=== PATIENT | male | born 1955 | race Caucasian/White ===

== ENCOUNTER → 2016-07-10 | Outpatient (CLI) | payer OTHER ==
[~2016-07-10] MED LIST: ALPRAZOLAM PO; ASPIRIN PO; IBUPROFEN PO; IBUPROFEN800 MG PO; METHADONE PO; TRAMADOL HCL50 M1 PO; ZESTRIL30 MG PO; ZOLOFT PO
--- NOTE | ~2016-07-10 | CR58 ---
[facility] A Service of [facility] RADIOLOGY TEXT RESULTS PATIENT: YOVANI ARTEAGA LOCATION: [facility] : 57 UNIT #: [id number] AGE: [address]: NERISSA ZUNIGA SEX: M ORDER DR: [id number] [facility] [address] [place], [place] [address] [id number] O MR#: [id number] Acc #: [id number] NAME: YOVANI ARTEAGA : 1955 SEX: M STUDY DATE/TIME: 07/10/2016 9:00 UNIT: [facility] ROOM: STUDY DESCRIPTION: CR Cervical Spine 2 or 3 Views Attending Physician: Joselito Larios Referring Physician: Joselito Larios Ordering Physician: Joselito Larios Primary Care Physician: Diana Lees M.D. MEDICAL IMAGING REPORT This report is preliminary unless electronic signature is present EXAM Cervical spine 07/10 INDICATIONS Neck pain and right shoulder pain intermittently over the last 2 years. No trauma. TECHNIQUE 3 views of the cervical spine were obtained COMPARISON No comparison FINDINGS There is retrolisthesis of C3 on C4. This measures about 4 mm. There is disc space narrowing at C3-4 level as well. There is multilevel facet arthropathy. Prevertebral soft tissues are normal. There are no fractures. IMPRESSION Spondylolisthesis and degenerative disc disease at C3-4. Followup with MRI is recommended if patient is a candidate. Dictated by... Jack Staples Jr., M.D. THIS IS AN ELECTRONICALLY VERIFIED REPORT Jack Staples Jr., M.D. at 07/10/2016 4:48 PM RLK/to TD: 07/10/2016 13:16 JOB #: [id number] [facility] A Service of [facility] RADIOLOGY TEXT RESULTS PATIENT: YOVANI ARTEAGA LOCATION: [facility] : 57 UNIT #: [id number] AGE: [address]: NERISSA ZUNIGA SEX: M ORDER DR: MEDICAL IMAGING REPORT Page 1 of 1 COPY
--- NOTE | ~2016-07-10 | CR230 ---
[facility] A Service of [facility] RADIOLOGY TEXT RESULTS PATIENT: YOVANI ARTEAGA LOCATION: [facility] : 57 UNIT #: [id number] AGE: [address]: NERISSA ZUNIGA SEX: M ORDER DR: [id number] [facility] [address] [facility] [place], [place] [address] [id number] O MR#: [id number] Acc #: [id number] NAME: YOVANI ARTEAGA : 1955 SEX: M STUDY DATE/TIME: 07/10/2016 9:00 UNIT: [facility] ROOM: STUDY DESCRIPTION: CR Shoulder Min 2 View Rt Attending Physician: Joselito Larios Referring Physician: Joselito Larios Ordering Physician: Joselito Larios Primary Care Physician: Diana Lees M.D. MEDICAL IMAGING REPORT This report is preliminary unless electronic signature is present There is a mild to EXAM Right shoulder 07/10 INDICATIONS Neck pain and right shoulder pain with intermittent numbness and tingling for 2 years. No trauma. FINDINGS 2 views of the right shoulder were obtained. There is hypertrophic AC joint arthropathy and there is no AC joint separation. There is no glenohumeral dislocation. IMPRESSION No acute findings. There is AC joint arthropathy. Dictated by... Jack Staples Jr., M.D. THIS IS AN ELECTRONICALLY VERIFIED REPORT Jack Staples Jr., M.D. at 07/10/2016 4:48 PM VALENTINK/mookie TD: 07/10/2016 13:18 JOB #: [id number] MEDICAL IMAGING REPORT Page 1 of 1 COPY
== END | disposition home or self-care (01) ==
LOC: CRAD 08:51
DX: M54.2 Cervicalgia (principal); M25.511 Pain in right shoulder; M19.011 Primary osteoarthritis, right shoulder; M43.12 Spondylolisthesis, cervical region; M50.31 Other cervical disc degeneration, high cervical region
CPT/HCPCS: 72040; 73030

== ENCOUNTER → 2016-07-24 | Outpatient (CLI) | payer OTHER ==
[2016-07-24 09:42] LABS: HEMATOCRIT 46.6 % (38.0-50.0); HEMOGLOBIN 15.6 gm/dL (13.0-16.0); MEAN CELL VOLUME 92.2 FL (83-96); MEAN CORPUSCULAR HEMOGLOBIN 30.8 PG (28-34); MEAN CORPUSCULAR HGB CONC 33.4 g/dL (30-36); MEAN PLATELET VOLUME 7.4 FL (6.5-11.5); RED BLOOD COUNT 5.05 X10e (3.90-5.60); RED CELL DISTRIBUTION WIDTH 14.4 % (11.0-15.5); WHITE BLOOD COUNT 7.9 X10e3 (4.0-10.5)
[2016-07-24 10:58] LABS: ALBUMIN SERUM 4.4 g/dL (3.5-5.0); BILIRUBIN,TOTAL 0.6 mg/dL (0.2-2.0); BUN/CREATININE RATIO 23.63; CALCIUM SERUM 9.5 mg/dL (8.4-10.2); CREATININE SERUM 1.1 mg/dL (0.6-1.4); GLOM FILT RATE Estimated 72.6 mL/min (>60); POTASSIUM 4.3 mmol/L (3.5-5.1); PROTEIN TOTAL SERUM 7.7 g/dL (6.0-8.3)
== END | disposition home or self-care (01) ==
LOC: CLAB 09:05
PROVIDERS: Nurse Practitioner Family
DX: B19.20 Unspecified viral hepatitis C without hepatic coma (principal)
CPT/HCPCS: 36415; 80053; 85027; 87522

== ENCOUNTER → 2016-09-13 | Outpatient (CLI) | payer OTHER ==
[2016-09-13 11:23] LABS: HEMATOCRIT 42.7 % (38.0-50.0); MEAN CELL VOLUME 93.6 FL (83-96); MEAN CORPUSCULAR HEMOGLOBIN 30.7 PG (28-34); MEAN CORPUSCULAR HGB CONC 32.8 g/dL (30-36); MEAN PLATELET VOLUME 7.4 FL (6.5-11.5); RED BLOOD COUNT 4.57 X10e (3.90-5.60); RED CELL DISTRIBUTION WIDTH 14.2 % (11.0-15.5); WHITE BLOOD COUNT 9.1 X10e3 (4.0-10.5)
[2016-09-13 12:18] LABS: ALBUMIN SERUM 4.1 g/dL (3.5-5.0); BILIRUBIN,TOTAL 0.7 mg/dL (0.2-2.0); GLOM FILT RATE Estimated 81.5 mL/min (>60); POTASSIUM 4.4 mmol/L (3.5-5.1); PROTEIN TOTAL SERUM 7.1 g/dL (6.0-8.3)
== END | disposition home or self-care (01) ==
LOC: CLAB 11:00
PROVIDERS: Nurse Practitioner Family
DX: B18.2 Chronic viral hepatitis C (principal)
CPT/HCPCS: 36415; 80053; 85027; 87522

== ENCOUNTER → 2016-11-14 | Outpatient (CLI) | payer OTHER ==
[2016-11-14 10:52] LABS: HEMATOCRIT 45.2 % (38.0-50.0); HEMOGLOBIN 15.6 gm/dL (13.0-16.0); MEAN CELL VOLUME 92.2 FL (83-96); MEAN CORPUSCULAR HEMOGLOBIN 31.8 PG (28-34); MEAN CORPUSCULAR HGB CONC 34.5 g/dL (30-36); MEAN PLATELET VOLUME 7.4 FL (6.5-11.5); RED BLOOD COUNT 4.9 X10e (3.90-5.60); RED CELL DISTRIBUTION WIDTH 14.1 % (11.0-15.5); WHITE BLOOD COUNT 9.1 X10e3 (4.0-10.5)
[2016-11-14 11:26] LABS: ALBUMIN SERUM 4.5 g/dL (3.5-5.0); BILIRUBIN,TOTAL 0.8 mg/dL (0.2-2.0); CALCIUM SERUM 9.4 mg/dL (8.4-10.2); GLOM FILT RATE Estimated 81.5 mL/min (>60); POTASSIUM 4.6 mmol/L (3.5-5.1); PROTEIN TOTAL SERUM 7.7 g/dL (6.0-8.3)
== END | disposition home or self-care (01) ==
LOC: CLAB 10:19
PROVIDERS: Nurse Practitioner Family
DX: B19.20 Unspecified viral hepatitis C without hepatic coma (principal)
CPT/HCPCS: 36415; 80053; 85027; 87522